=== PATIENT | female | born 1935 | race African-American/Black ===

== ENCOUNTER 2021-09-11 09:24 | Inpatient (IN) | payer MEDICARE, OTHER ==
[~2021-09-11] VITALS: Ht 175.3 cm; Wt 88.1 kg
[2021-09-11 10:49] LABS: CHLORIDE 107 mEq/L (98-107)
[2021-09-11 11:20] LABS: BASOPHILS % 0.4 % (0.0-2.0); EOSINOPHILS % 0.5 % (0.0-5.0); HEMATOCRIT. 32.8 % (36.0-48.0); HEMOGLOBIN. 10.6 g/dL (12.0-16.0); MEAN CORPUSCULAR HEMOGLOBIN 27.5 pg (28.0-32.0); MEAN PLATELET VOLUME 9.5 fl (7.4-10.4); NEUTROPHILS % 77.1 % (40.0-76.0); PLATELET 167 x1000/uL (130-400); RED BLOOD CELL COUNT 3.85 mill/uL (4.2-5.4); RED CELL DISTRIBUTION WIDTH 19.4 % (11.6-14.6)
[2021-09-11 15:12] LABS: CLARITY URINE CLEAR (CLEAR); COLOR URINE YELLOW (YELLOW); KETONES URINE NEGATIVE (NEGATIVE); LEUKOCYTE ESTERASE URINE TRACE (NEGATIVE); NITRITE URINE NEGATIVE (NEGATIVE); OCCULT BLOOD URINE NEGATIVE (NEGATIVE); PROTEIN URINE 1+ (NEGATIVE); SPECIFIC GRAVITY URINE 1.017 (1.005-1.030)
[2021-09-11] MEDS ORDERED: ONDANSETRON HCL 4MG/2ML INJ IV PRN (20:45)
[2021-09-11] MEDS ORDERED: DOCUSATE SODIUM 100MG CAPSULE PO PRN (20:45)
[2021-09-11] MEDS ORDERED: ENOXAPARIN 40MG/0.4ML SYR SUBCUT SCH (20:45)
[2021-09-11] MEDS ORDERED: ACETAMINOPHEN 325MG TABLET PO PRN (20:45)
[2021-09-11] MEDS ORDERED: ASPIRIN 81MG TABLET PO NR (21:00)
[2021-09-11] MEDS: ATORVASTATIN CALCIUM 40MG TABLET PO SCH (21:17)
[2021-09-11] MEDS: AMLODIPINE 10MG TABLET PO SCH (21:18)
[2021-09-11] MEDS: LOSARTAN POTASSIUM 50 MG TABLET PO SCH (21:18)
[2021-09-11] MEDS ORDERED: ENOXAPARIN 30MG/0.3ML SYR SUBCUT SCH (21:30)
[2021-09-11] MEDS ORDERED: DEXTROSE 50% WATER 50ML SYRINGE IV PRN (21:45)
[2021-09-11] MEDS: BLOOD SUGAR DIAGNOSTIC STRIP TEST SCH (21:59)
[2021-09-11] MEDS: INSULIN LISPRO 100 UNITS/ML SUBCUT SCH (22:15)
[2021-09-11 22:35] VITALS: BP 183/81
[2021-09-11 23:08] VITALS: BP 183/81
[2021-09-12] VITALS (14 sets, daily range): BP systolic 130–180; BP diastolic 64–87
[2021-09-12] MEDS: CLONIDINE 0.1MG TABLET PO PRN ×2 (02:18→09:22)
[2021-09-12] MEDS: BLOOD SUGAR DIAGNOSTIC STRIP TEST SCH ×4 (06:14→21:24)
[2021-09-12 06:17] LABS: BASOPHILS % 0.5 % (0.0-2.0); EOSINOPHILS % 1.3 % (0.0-5.0); HEMATOCRIT. 29.8 % (36.0-48.0); HEMOGLOBIN. 9.9 g/dL (12.0-16.0); LYMPHOCYTES % 31.5 % (20.0-50.0); MEAN CORPUSCULAR HEMOGLOBIN 27.9 pg (28.0-32.0); MEAN CORPUSCULAR VOLUME 84.1 fL (81.0-99.0); MEAN PLATELET VOLUME 9.4 fl (7.4-10.4); NEUTROPHILS % 59.7 % (40.0-76.0); PLATELET 168 x1000/uL (130-400); RED BLOOD CELL COUNT 3.55 mill/uL (4.2-5.4); RED CELL DISTRIBUTION WIDTH 19.3 % (11.6-14.6)
[2021-09-12 06:24] LABS: CHLORIDE 111 mEq/L (98-107)
[2021-09-12 06:38] LABS: LDL CHOLESTEROL 93 mg/dL (5-100)
[2021-09-12 06:40] LABS: HDL CHOLESTEROL 44 mg/dL (40-59)
[2021-09-12 06:54] LABS: VITAMIN B12 SERUM > 2000.0 pg/mL (211-911)
[2021-09-12] MEDS: INSULIN LISPRO 100 UNITS/ML SUBCUT SCH ×4 (07:20→21:30)
[2021-09-12] MEDS: LOSARTAN POTASSIUM 50 MG TABLET PO SCH (08:14)
[2021-09-12] MEDS: AMLODIPINE 10MG TABLET PO SCH (08:15)
[2021-09-12] MEDS ORDERED: INSULIN LISPRO 100 UNITS/ML SUBCUT SCH (08:20)
[2021-09-12] MEDS: HYDRALAZINE 20MG/ML VIAL IV PRN (16:42)
[2021-09-12 17:13] LABS: INR 1.1; PROTHROMBIN TIME 11.9 sec (9.6-11.0)
[2021-09-12] MEDS ORDERED: ENOXAPARIN 100MG/ML SYR SUBCUT SCH (18:00)
[2021-09-12] MEDS ORDERED: ASCO250T22 PO (18:50)
[2021-09-12] MEDS ORDERED: METO-411 PO (18:50)
[2021-09-12] MEDS ORDERED: DOXA4TAB3 PO (18:50)
[2021-09-12] MEDS ORDERED: APIX2.5T PO (18:50)
[2021-09-12] MEDS ORDERED: AMLO10TA80 PO (18:50)
[2021-09-12] MEDS ORDERED: OMEP20CA14 PO (18:50)
[2021-09-12] MEDS ORDERED: LATA2.5D14 EACHEYE (18:50)
[2021-09-12] MEDS ORDERED: GABA-532 PO (18:50)
[2021-09-12] MEDS ORDERED: CLON0.1T PO (18:50)
[2021-09-12] MEDS ORDERED: GLIP5TAB12 PO (18:50)
[2021-09-12] MEDS ORDERED: IRBE300T17 PO (18:50)
[2021-09-12] MEDS ORDERED: MECL-159 PO (18:50)
[2021-09-12] MEDS ORDERED: AMI2 (18:50)
[2021-09-12] MEDS: ATORVASTATIN CALCIUM 40MG TABLET PO SCH (21:22)
[2021-09-13] VITALS (9 sets, daily range): BP systolic 144–179; BP diastolic 58–83
[2021-09-13] MEDS: HYDRALAZINE 20MG/ML VIAL IV PRN ×2 (02:41→14:24)
[2021-09-13] MEDS: BLOOD SUGAR DIAGNOSTIC STRIP TEST SCH ×2 (06:16→11:52)
[2021-09-13] MEDS: LOSARTAN POTASSIUM 50 MG TABLET PO SCH (08:22)
[2021-09-13] MEDS: AMLODIPINE 10MG TABLET PO SCH (08:22)
[2021-09-13] MEDS: INSULIN LISPRO 100 UNITS/ML SUBCUT SCH ×2 (08:24→12:16)
[2021-09-13] MEDS ORDERED: ASPIRIN 81MG TABLET PO SCH (09:00)
[2021-09-13] MEDS: CLONIDINE 0.1MG TABLET PO PRN (12:16)
[2021-09-13 13:27] LABS: *AMPHETAMINES SCREEN URINE NEGATIVE (NEGATIVE); *BARBITURATES SCREEN URINE NEGATIVE (NEGATIVE); *BENZODIAZEPINES SCREEN URINE NEGATIVE (NEGATIVE); *COCAINE SCREEN URINE NEGATIVE (NEGATIVE)
[2021-09-13 13:29] LABS: CANNABINOID URINE SCREEN NEGATIVE (NEGATIVE); METHADONE URINE SCREEN NEGATIVE (NEGATIVE); OPIATES URINE SCREEN NEGATIVE (NEGATIVE); PHENCYCLIDINE URINE SCREEN NEGATIVE (NEGATIVE)
[2021-09-13] MEDS ORDERED: APIXABAN 2.5 MG TABLET PO SCH (17:00)
== END 2021-09-13 15:15 | disposition home or self-care (01) | DRG 69 ==
LOC: ER 09:41 → 3WST 13:50 → ENRESERV 18:35
PROVIDERS: ADMIT Internal Medicine Pulmonary Disease; ATTEND Internal Medicine Pulmonary Disease
DX: G45.9 Transient cerebral ischemic attack, unspecified (principal); N17.9 Acute kidney failure, unspecified; E44.0 Moderate protein-calorie malnutrition; G90.8 Other disorders of autonomic nervous system; D64.9 Anemia, unspecified; E11.22 Type 2 diabetes mellitus with diabetic chronic kidney disease; E11.65 Type 2 diabetes mellitus with hyperglycemia; E78.5 Hyperlipidemia, unspecified; I12.9 Hypertensive chronic kidney disease with stage 1 through stage 4 chronic kidney disease, or unspecified chronic kidney disease; N18.30 Chronic kidney disease, stage 3 unspecified; I51.7 Cardiomegaly; I48.0 Paroxysmal atrial fibrillation; I45.10 Unspecified right bundle-branch block; I25.10 Atherosclerotic heart disease of native coronary artery without angina pectoris; Z68.28 Body mass index [BMI] 28.0-28.9, adult; Z95.0 Presence of cardiac pacemaker; Z79.01 Long term (current) use of anticoagulants; Z86.73 Personal history of transient ischemic attack (TIA), and cerebral infarction without residual deficits
CPT/HCPCS: 36415; 71045; 80048; 80053; 80061; 80305; 81003; 82607; 82962; 83605; 83735; 83880; 84145; 84443; 84484; 85025; 93306; 93880; 97162; 99285; J0360; J1650; J1815

== ENCOUNTER 2022-03-04 10:31 | Emergency (ER) | payer MEDICARE, MEDICAID ==
[~2022-03-04] VITALS: Ht 165.1 cm; Wt 82.0 kg
[~2022-03-04 10:31] MED LIST: AMI2; AMLO10TA80 PO; APIX2.5T PO; ASCO250T22 PO; CLON0.1T PO; DOXA4TAB3 PO; EZET10TA13 PO; GABA-532 PO; GLIP5TAB12 PO; IRBE300T17 PO; IRBE300T42 PO; LATA2.5D14 EACHEYE; MECL-159 PO; METO-396 MT; METO-411 PO; OMEP20CA14 PO
[2022-03-04 12:00] LABS: BASOPHILS % 0.2 % (0.0-2.0); EOSINOPHILS % 0.6 % (0.0-5.0); HEMATOCRIT. 33.3 % (36.0-48.0); HEMOGLOBIN. 10.9 g/dL (12.0-16.0); LYMPHOCYTES % 22.9 % (20.0-50.0); MEAN CORPUSCULAR HEMOGLOBIN 29.6 pg (28.0-32.0); MEAN CORPUSCULAR VOLUME 90.5 fL (81.0-99.0); MEAN PLATELET VOLUME 9.2 fl (7.4-10.4); MONOCYTES % 5.5 % (2.0-8.0); NEUTROPHILS % 70.8 % (40.0-76.0); PLATELET 174 x1000/uL (130-400); RED BLOOD CELL COUNT 3.68 mill/uL (4.2-5.4); RED CELL DISTRIBUTION WIDTH 14.1 % (11.6-14.6)
[2022-03-04 12:46] VITALS: BP 183/75
== END 2022-03-04 14:56 | disposition home or self-care (01) ==
LOC: ER 11:07
DX: I95.89 Other hypotension (principal); I45.10 Unspecified right bundle-branch block; I13.10 Hypertensive heart and chronic kidney disease without heart failure, with stage 1 through stage 4 chronic kidney disease, or unspecified chronic kidney disease; E11.22 Type 2 diabetes mellitus with diabetic chronic kidney disease; N18.9 Chronic kidney disease, unspecified; I48.91 Unspecified atrial fibrillation; Z95.0 Presence of cardiac pacemaker; Z79.01 Long term (current) use of anticoagulants; Z79.899 Other long term (current) drug therapy; Z79.84 Long term (current) use of oral hypoglycemic drugs; Z86.73 Personal history of transient ischemic attack (TIA), and cerebral infarction without residual deficits; Z99.2 Dependence on renal dialysis
CPT/HCPCS: 36415; 80048; 85025; 93005; 99284